=== PATIENT | female | born 1975 | race African-American/Black ===

== ENCOUNTER 2016-11-05 11:00 | Emergency (ER) | payer MEDICAID, OTHER ==
[~2016-11-05] VITALS: Ht 167.6 cm; Wt 105.7 kg
[2016-11-05 12:17] VITALS: BP 150/98
== END 2016-11-05 13:04 | disposition home or self-care (01) ==
LOC: ED 11:00
DX: H61.21 Impacted cerumen, right ear (principal)

== ENCOUNTER 2017-04-01 07:30 | Emergency (ER) | payer OTHER ==
[~2017-04-01] VITALS: Ht 167.6 cm; Wt 98.9 kg
[2017-04-01 07:50] VITALS: BP 151/71; Ht 167.6 cm; Wt 98.9 kg
== END 2017-04-01 09:10 | disposition home or self-care (01) ==
LOC: ED 07:30
DX: H61.21 Impacted cerumen, right ear (principal)

== ENCOUNTER → 2017-10-18 | Outpatient (CLI) | payer OTHER | END | disposition home or self-care (01) | LOC: MA 12:40 | PROC: BH02ZZZ Plain Radiography of Bilateral Breasts (ICD-10-PCS; principal; 2017-10-18) | DX: Z12.31 Encounter for screening mammogram for malignant neoplasm of breast (principal) | CPT/HCPCS: 77067 ==

== ENCOUNTER 2017-10-30 08:19 | Emergency (ER) | payer OTHER ==
[~2017-10-30] VITALS: Ht 167.6 cm; Wt 99.8 kg
[2017-10-30 08:26] VITALS: BP 150/74; Ht 167.6 cm; Wt 99.8 kg
== END 2017-10-30 09:40 | disposition home or self-care (01) ==
LOC: ED 08:19
DX: H61.21 Impacted cerumen, right ear (principal)

== ENCOUNTER 2017-12-21 06:51 | Emergency (ER) | payer OTHER ==
[~2017-12-21] VITALS: Ht 167.6 cm; Wt 93.9 kg
[2017-12-21 07:02] VITALS: BP 145/92; Ht 167.6 cm; Wt 93.9 kg
== END 2017-12-21 07:51 | disposition home or self-care (01) ==
LOC: ED 06:51
DX: L50.9 Urticaria, unspecified (principal)

== ENCOUNTER → 2018-10-28 | Outpatient (CLI) | payer OTHER ==
[2018-10-28 09:38] LABS: BASOPHIL % 0.6 % (0-2); PLATELET COUNT 286 x10^3mcL (130-400); RED CELL DISTRIBUTION WIDTH 12.4 % (11.5-14.5)
[2018-10-28 09:39] LABS: microscopic required? YES; urine erythrocyte NEGATIVE (NEGATIVE)
[2018-10-28 10:13] LABS: ALBUMIN 3.4 g/dL (3.4-5.0); ALKALINE PHOSPHATASE 38 U/L (46-116); ALT/SGPT 32 U/L (14-59); AST/SGOT 14 U/L (15-37); BILIRUBIN TOTAL 0.5 mg/dL (0.20-1.00); CALCIUM 8.7 mg/dL (8.5-10.1); CARBON DIOXIDE 25.4 mmol/L (21-32); CHLORIDE SERUM 106 mmol/L (98-107); CREATININE SERUM 0.7 mg/dL (0.6-1.0); GFR1 > 60 mL/min; GLUCOSE SERUM 91 mg/dL (74-106); HDL CHOLESTEROL 41 mg/dL (40-60); POTASSIUM SERUM 4.2 mmol/L (3.5-5.1); SODIUM SERUM 140 mmol/L (136-145); TOTAL PROTEIN, SERUM 7.2 g/dL (6.4-8.2); TRIGLYCERIDES 47 mg/dL (<150)
[2018-10-28 10:16] LABS: CHOLESTEROL 124 mg/dL (<200)
== END | disposition home or self-care (01) ==
LOC: MA 08:36
PROC: BH02ZZZ Plain Radiography of Bilateral Breasts (ICD-10-PCS; principal; 2018-10-28)
DX: Z00.00 Encounter for general adult medical examination without abnormal findings (principal); I10 Essential (primary) hypertension; Z12.31 Encounter for screening mammogram for malignant neoplasm of breast
CPT/HCPCS: 77067

== ENCOUNTER → 2019-11-10 | Outpatient (CLI) | payer OTHER ==
[2019-11-10 12:31] LABS: BASOPHIL % 0.8 % (0-2); PLATELET COUNT 264 x10^3mcL (130-400)
[2019-11-10 13:12] LABS: ALBUMIN 3.7 g/dL (3.4-5.0); ALKALINE PHOSPHATASE 49 U/L (46-116); ALT/SGPT 31 U/L (14-59); AST/SGOT 14 U/L (15-37); BILIRUBIN TOTAL 0.67 mg/dL (0.20-1.00); CALCIUM 8.5 mg/dL (8.5-10.1); CARBON DIOXIDE 23.6 mmol/L (21-32); CHLORIDE SERUM 103 mmol/L (98-107); CREATININE SERUM 0.9 mg/dL (0.6-1.0); GFR1 > 60 mL/min; GLUCOSE SERUM 91 mg/dL (74-106); HDL CHOLESTEROL 40 mg/dL (40-60); POTASSIUM SERUM 3.7 mmol/L (3.5-5.1); SODIUM SERUM 137 mmol/L (136-145); TOTAL PROTEIN, SERUM 7.5 g/dL (6.4-8.2); TRIGLYCERIDES 72 mg/dL (<150)
[2019-11-10 13:13] LABS: CHOLESTEROL 118 mg/dL (<200)
== END | disposition home or self-care (01) ==
LOC: MA 10:34
PROC: BH02ZZZ Plain Radiography of Bilateral Breasts (ICD-10-PCS; principal; 2019-11-10)
DX: Z12.31 Encounter for screening mammogram for malignant neoplasm of breast (principal)
CPT/HCPCS: 77067